=== PATIENT | female | born 1985 | race Caucasian/White ===

== ENCOUNTER 2019-07-19 17:45 | Inpatient (IN) | payer BC, SELFPAY ==
[2019-07-19] VITALS (9 sets, daily range): BP systolic 112–129; BP diastolic 60–71; PULSE 74–104; TEMP 37–37.2; O2SAT 97–99; BMI 29.7
[2019-07-19] MEDS: Lactated Ringers 1,000 ML 50 ML IV (18:30)
[2019-07-19 19:04] LABS: Absolute Lymphocyte Count 2.12 X10^3/uL (0.83-4.51); Absolute Neutrophil Count 5.6 X10^3/uL (2.0-7.7); Basophil# 0.01 X10^3/uL; Basophil% 0.1 % (0-1); Eosinophil# 0.12 X10^3/uL; Eosinophils% 1.4 % (0-5); Hematocrit 33.5 % (37-47); Hemoglobin 10.8 g/dL (12.0-15.0); Lymphocyte # 2.12 X10^3/ul (4.0); Lymphocyte % 24.7 % (19-41); Mean Corp Hgb Conc 32.2 g/dL (32-36); Mean Corpuscular Hgb 26.9 pg (27.0-32.0); Mean Corpuscular Volume 83.3 fL (81-99); Mean Platelet Vol. 11.1 fl (6.2-12.0); Monocyte% 8.2 % (0-10); NRBC Flagged by Analyzer 0 % (0-5); Neutrophil % 65.3 % (47-70); Platelet Count 269 K/mm3 (150-450); RBC Distribution Width CV 13.2 % (11.6-14.6); RBC Distribution Width SD 39.7 fl (35.1-43.9); Red Blood Count 4.02 M/mm3 (4.2-5.4); White Blood Count 8.6 K/mm3 (4.4-11.0)
[2019-07-19] MEDS: Lactated Ringers 500 ML 999 ML IV (23:01)
[2019-07-19] MEDS: fentaNYL-bupivacaine (epidural) 100 ML BAG EPIDURAL (23:58)
[2019-07-20] VITALS (35 sets, daily range): BP systolic 90–133; BP diastolic 49–87; PULSE 70–134; RESP 14–16; TEMP 36.2–37.7; O2SAT 98–100
[2019-07-20] MEDS: Lactated Ringers 500 ML 999 ML IV (00:02)
[2019-07-20] MEDS: Oxytocin 30 units/NS 500 ml 30 UNITS/500 ML IV.SOLN IV (01:00)
[2019-07-20] MEDS: Mag Hydrox/Al Hydrox/Simeth 30 ML UDC PO (04:06)
[2019-07-20] MEDS: fentaNYL-bupivacaine (epidural) 100 ML BAG EPIDURAL (04:08)
[2019-07-20] MEDS: Lactated Ringers 1,000 ML 200 ML IV (04:12)
[2019-07-20] MEDS: Oxytocin 30 units/NS 500 ml 30 UNITS/500 ML IV.SOLN 334 UNITS IV (06:54)
--- NOTE | 2019-07-20 07:15 | PCM.OPRPT ---
Vaginal Delivery Maternal Presentation: Medically Indicated Induction Method of Induction: Pitocin, Amniotomy Medical Reason for Induction: - - h/o 3rd degree laceration Amniotic Membrane Rupture Type: Artificial Amniotic Fluid Description: Clear Final JUANIS: 07/25/19 Final JUANIS Source: US <20 weeks Gestational age: 39 Weeks and 2 Days Date of Procedure: 07/20/19 Pre-Operative Diagnosis: labor Post-Operative Diagnosis: same Surgery/ Procedure Performed: Spontaneous Vaginal Delivery Type of Anesthesia: Epidural Description of Procedure: A vigorous male infant was delivered RIZWAN over a second-degree perineal laceration. A loose nuchal cord ?1 was easily reduced. The remainder the was delivered with maternal pushing and gentle traction only in less than 15 seconds. The Pitocin infusion was initiated for active management of the third stage. The cord was clamped and cut after 1 minute. The was attended to by the waiting nursing staff. The placenta was delivered spontaneously and intact. The cervix and vagina were intact. The second-degree perineal laceration was repaired with 3-0 Vicryl suture in a running standard fashion. Sponge and needle counts were correct. A vaginal sweep was completed by me. Presentation: RIZWAN Placental Delivery Description: Spontaneous Placenta Disposition: [facility] Cord Vessel Description: 3 Vessels Nuchal Cord Compression: Without compression Cord Entanglement: Around neck x 1, loose Drain: Bartholomew to straight drain Estimated Blood Loss: 300 Infant A gender: Male (1 minute): 9 (5 minute): 9 Episiotomy Description: None Laceration: 2nd degree Medications given after delivery: IV Pitocin Complications: None
--- NOTE | 2019-07-20 07:17 | HP.PCM_ITS ---
History Date of Admission: 07/19/19 Final JUANIS: 07/25/19 Final JUANIS Source: US <20 weeks Gestational age: 39 Weeks and 2 Days History of this : This is a 34 year-old, G 3, P 2, at presented to triage at 39-1/7 weeks gestation with a EDC of 07/25/2019 with complaints of some bloody show. She also had some irregular contractions. She had not changed her cervix significantly, but had a history of third-degree laceration. Risk benefits and alternatives to induction were offered to the patient she desired to proceed. was uncomplicated to date. Allergies amoxicillin [Amoxicillin] Allergy (Verified 07/13/16 14:23) Hives Home Medications: Home Medications Vits [Prenatabs FA ] 1 tablet PO DAILY 01/13/14 Calcium Carbonate [Tums] 500 mg PO TIDCM 07/19/19 Smoking Status: Never smoker Alcohol: None Number of Fetus(es): 1 History Past Pregnancies: Past Pregnancies Delivery Date Name GA/ Weeks Outcome Route Wt Sex Labor Length Anesthesia Delivery Location Provider FOB Expected Infant Delivery Method: Spontaneous Vaginal Review of Systems Constitutional: Denies: Chills, Fever Eyes: Denies: Blurred vision Cardiovascular: Denies: Chest Pain Respiratory: Denies: Cough, Shortness of Breath Gastrointestinal: Denies: Constipation, Diarrhea Genitourinary: Denies: Dysuria Neurological: Denies: Blurred vision, Double vision, Slurred speech Physical Exam Vitals: Vital Signs Temp Pulse BP Pulse Ox 99.9 F H 103 H 113/63 100 07/20/19 06:05 07/20/19 07:09 07/20/19 07:09 07/20/19 06:05 General: Alert, Cooperative, No apparent distress Cardiovascular: Regular rate Lungs: Normal air movement Abdomen: Soft, Non Tender, Non-Distended, Gravid Extremities:: Other - edema 1+ Neurological: Neuro grossly intact VENEER MATCHER: Normal external genitalia Estimated gestational size: Appropriate for gestational size Presentation: Cephalic Cervix Dilation (cm): 3 - arom w/ moderate clear fluid Station: -2 Effacement (%): 70 Assessment/Plan This is a 34 year-old, 3 para 2 at 39-1/7 weeks gestation admitted for induction of labor. Having some irregular contractions. H/o third-degree laceration. Estimated weight is less than 4500 g clinically and pelvis is clinically adequate to expect vaginal delivery. Pitocin and artificial rupture membranes for induction of labor. May have epidural as needed for pain control.
[2019-07-20] MEDS: 0.9% Saline Lock 10 ML Syringe IV (11:49)
[2019-07-20] MEDS: Naproxen 250 MG Tablet 500 MG PO (15:42)
[2019-07-20] MEDS: Acetaminophen 500 MG Tablet 1000 MG PO (23:05)
[2019-07-21 03:14] VITALS: BP 109/55; PULSE 64; RESP 14; TEMP 36.2
[2019-07-21] MEDS: Naproxen 250 MG Tablet 500 MG PO ×2 (03:20→13:34)
[2019-07-21 07:28] VITALS: BP 99/58; PULSE 71
[2019-07-21 08:00] VITALS: BP 99/58; PULSE 71; RESP 14; TEMP 36.2
--- NOTE | 2019-07-21 11:39 | PCM.PN.OB ---
Subjective: Patient is doing well. Ambulating and voiding without difficulty. Tolerating a regular diet without nausea or vomiting. She denies lightheadedness, dizziness, chest pain, shortness of breath, leg pain. Lochia normal. She is pumping. She has been working with . She desires to go home today. - Physical Exam Vitals/I&O's: Vital Signs Temp Pulse Resp BP Pulse Ox 97.1 F L 71 14 99/58 L 100 07/21/19 08:00 07/21/19 08:00 07/21/19 08:00 07/21/19 08:00 07/20/19 06:05 Oxygen Delivery Method Room Air Weight: 178 lb 9.191 oz Body Mass Index (BMI) 29.7 Intake and Output for Last 24 Hours 07/19/19 07/20/19 07/21/19 23:59 23:59 23:59 Intake Total 747.50 / 747.50 2806.67 / 2806.67 Output Total 1400 / 1400 Balance 747.50 / 747.50 1406.67 / 1406.67 General: Alert, No apparent distress HEENT: Atraumatic Lungs: Normal air movement Skin: No rashes Neurological: Neuro grossly intact Psych/Mental Status: Normal Affect, Appropriate Current Medications Acetaminophen (Tylenol) 1,000 mg PO Q8H PRN PRN PRN Reason: Pain Score 1-3/10 Last Admin: 07/20/19 23:05 Dose: 1,000 mg Documented by: Bisacodyl (Dulcolax) 10 mg RECTAL UD PRN PRN Reason: If no BM Dibucaine (Dibucaine) 1 applic TOPICAL TID PRN PRN; Protocol PRN Reason: Discomfort Hydrocortisone (Hytone) 1 applic TOPICAL TID PRN PRN; Protocol PRN Reason: Discomfort Methylergonovine Maleate (Methergine) 0.2 mg IM X1 PRN PRN Reason: Excess bleeding/uterine atony Naproxen (Naprosyn) 500 mg PO Q8H PRN PRN PRN Reason: Pain Score 1-3/10 Last Admin: 07/21/19 03:20 Dose: 500 mg Documented by: Ondansetron HCl (Zofran) 4 mg IV Q4H PRN PRN PRN Reason: Nausea Oxycodone HCl (Oxyir) 5 - 10 mg PO Q4H PRN PRN PRN Reason: Pain Score 4-10/10 Prochlorperazine Edisylate (Compazine Iv) 10 mg IV Q6H PRN PRN PRN Reason: NAUSEA/VOMITING Senna/Docusate Sodium (Senokot-S, Mya-Colace) 1 - 2 tablet PO DAILY PRN PRN PRN Reason: Constipation Simethicone (Mylicon) 80 mg PO PCHS PRN PRN Reason: Indigestion/Stomach pain Sodium Chloride () 5 - 15 ml IV UD PRN PRN Reason: SALINE FLUSH Last Admin: 07/20/19 11:49 Dose: 10 ml Documented by: Medical Necessity - Tobacco Use Smoking Status: Never smoker Assessment/Plan Patient is day 1 from a vaginal delivery. She is doing well and meeting all milestones to go home. She desires to go home. Discharge instructions reviewed.
--- NOTE | 2019-07-21 11:40 | DCINST_ITS ---
Discharge Diet: No Restrictions Discharge Activity: May Shower, May Take a Tub Bath May resume sexual activity in: 6 weeks Ice area for (Minutes): 15 Weight Bearing Status: Weight bearing as tolerated Lifting Restrictions: Nothing greater than 20 lbs Call your doctor if your incision/area has: Increased Pain/ Swelling, Foul Smelling Discharge Call your doctor if you observe: Fever of 101 or Higher, Inability to urinate, Inability to have a bowel movement, Using more than one pad per hour, Shortness of breath, Chest pain, Increased palpitations (irregular heartbeat), Calf discomfort, Uncontrolled pain Cleanse incision/area with: Soap & Water Additional Instructions: If you experience any of the following, contact your healthcare provider. * Bleeding that soaks a pad every hour for 2 hours * Fever 100.4 or higher * Unrelieved incision or abdominal pain * Swelling, redness, discharge or bleeding from your incision or episiotomy site * Your incision begins to separate * Problems urinating (including inability to urinate or burning while urinating). * Visual changes * Severe headache * Flu-like symptoms * Pain or redness in one of both of your breasts * Pain, warmth, tenderness or swelling in your legs, especially the calf area * Frequent nausea and vomiting * Symptoms of depression or anxiety If you experience any of the following, call 911 or go to the nearest Emergency Room. * Chest pain * Problems breathing * Seizure activity * Partial or complete paralysis of a body part, slurred speech, weakness or drooping of the face, or a sudden inability to walk or hold your balance Allergies/Adverse Reactions: Allergies amoxicillin [Amoxicillin] Allergy (Verified 07/13/16 14:23) Hives Medications to take at Discharge Vits [Prenatabs FA ] 1 tablet PO DAILY 01/13/14 Calcium Carbonate [Tums] 500 mg PO TIDCM 07/19/19 When: 6 week visit - okay for virtual visit if you feel well. Can also have virtual visit in 1-2 weeks if you desires Primary Care Physician: Yassine Mims MD [Primary Care Provider] - Test Results: Test results from this visit will be discussed in further detail at your follow- up appointment, if applicable.
[2019-07-21 13:27] VITALS: BP 104/59; PULSE 84
[2019-07-21] MEDS: Senna/Docusate Sodium 1 Tablet PO (13:34)
[2019-07-21 13:43] VITALS: BP 104/59; PULSE 84; RESP 16; TEMP 36.2
== END 2019-07-21 16:20 | disposition home or self-care (01) | DRG 807 ==
PROVIDERS: Admitting Provider Obstetrics & Gynecology; PCP Family Medicine; Visit Provider Obstetrics & Gynecology
DX: O69.1XX0 Labor and delivery complicated by cord around neck, with compression, not applicable or unspecified (principal); O70.1 Second degree perineal laceration during delivery; Z3A.39 39 weeks gestation of pregnancy; Z37.0 Single live birth
CPT/HCPCS: 59025; 59050; 85025; 86850; 86900; 86901; 99218; J7120; A4216; G0378

== ENCOUNTER → 2022-07-02 | Outpatient (CLI) | payer BC, SELFPAY ==
[2022-07-07 08:31] LABS: HPV APTIMA, High Risk Negative (Negative)
== END | disposition home or self-care (01) ==
LOC: LAB 11:53
PROVIDERS: PCP Internal Medicine; Referring Provider Obstetrics & Gynecology; Visit Provider Obstetrics & Gynecology
DX: Z34.90 Encounter for supervision of normal pregnancy, unspecified, unspecified trimester (principal)
CPT/HCPCS: 87624; 88175; G0145

== ENCOUNTER → 2022-08-22 | Outpatient (CLI) | payer BC, SELFPAY ==
--- NOTE | 2022-08-22 07:55 | US_ITS ---
STUDY: SECOND AND THIRD TRIMESTER OBSTETRICAL ULTRASOUND REASON FOR EXAM: Female, 37 years old anatomy LMP: April 09, 2022. TECHNIQUE: Transabdominal and Transvaginal TECHNICAL QUALITY: Adequate. PRIOR ULTRASOUND: None. FINDINGS: There is a single intrauterine fetus. The fetus is in an transverse lie with the head on the maternal left side. There is demonstrated cardiac activity with a heart rate of 141 bpm. There is a normal amniotic fluid volume. The largest amniotic fluid pocket measures 6.1 cm x 4.6 cm. The amniotic fluid index (CARLOS A) is within normal limits. The placenta is anterior in location and is not low lying. There are Grade 0 placental changes. The cervix measures 4.2 cm in length. The bilateral adnexal regions are normal. BIOMETRY: BPD: 4.32 cm: 19 weeks, 0 days HC: 16.46 cm: 19 weeks, 1 days AC: 14.8 cm: 20 weeks, 1 days FL: 2.92 cm: 19 weeks, 0 days CI: 75% FL/BPD: 68% FL/HC: FL/AC: 20% HC/AC: 1.11 age by current US: 19 weeks, 2 days. JUANIS by current US: January 14, 2023. Estimated weight: 299 grams, +/- 45 grams, 59 %. Age by LMP: 19 weeks, 2 days. JUANIS by LMP: January 14, 2023. ANATOMY: Gender: Indeterminant Cranium: Normal lateral ventricles. Normal choroid plexus. Normal cerebellum. Normal cisterna magna. Normal face, nose and lips. Chest: Normal 4-chamber heart. Abdomen/Pelvis: Normal diaphragm. Normal stomach. Normal abdominal wall. Normal cord insertion. Normal 3 vessel cord. Normal kidneys. Normal bladder. Spine: Normal cervical spine. Normal thoracic spine. Normal lumbar spine. Normal sacrum. Extremities: Normal bilateral upper extremities. Normal bilateral lower extremities. IMPRESSION: Single live intrauterine gestation with gestational age of 19 weeks 2 days. Electronically Signed: Brandan Blackmon MD at 15:25 EDT , STUDY: FIRST TRIMESTER OBSTETRICAL ULTRASOUND REASON FOR EXAM: Female, 37 years old . Cervical length. LMP: April 09, 2022 TECHNIQUE: Transvaginal TECHNICAL QUALITY: Adequate. PRIOR ULTRASOUND: None. FINDINGS: Cervical length measures 4.2 cm. US/OB Anatomy Scan IMPRESSION: Cervical length measures 4.2 cm. Electronically Signed: Brandan Blackmon MD at 15:26 EDT ,
== END | disposition home or self-care (01) ==
PROVIDERS: PCP Internal Medicine; Referring Provider Obstetrics & Gynecology; Visit Provider Obstetrics & Gynecology
DX: O09.90 Supervision of high risk pregnancy, unspecified, unspecified trimester (principal)
CPT/HCPCS: 76805; 76817

== ENCOUNTER → 2022-10-22 | Outpatient (CLI) | payer BC, SELFPAY ==
[2022-10-22 08:44] LABS: Absolute Lymphocyte Count 2.04 X10^3/uL (0.83-4.51); Absolute Neutrophil Count 5.4 X10^3/uL (2.0-7.7); Basophil# 0.04 X10^3/uL; Basophil% 0.5 % (0-1); Eosinophil# 0.17 X10^3/uL; Eosinophils% 2.1 % (0-5); Hematocrit 35.8 % (37-47); Hemoglobin 11.4 g/dL (12.0-15.0); Lymphocyte # 2.04 X10^3/ul (0.83-4.51); Lymphocyte % 24.7 % (19-41); Mean Corp Hgb Conc 31.8 g/dL (32-36); Mean Corpuscular Hgb 28.7 pg (27.0-32.0); Mean Corpuscular Volume 90.2 fL (81-99); Mean Platelet Vol. 10.4 fl (6.2-12.0); Monocyte# 0.56 X10^3/uL; Monocyte% 6.8 % (0-10); NRBC Flagged by Analyzer 0 % (0-5); Neutrophil % 65.2 % (47-70); Platelet Count 320 K/mm3 (150-450); RBC Distribution Width CV 13.5 % (11.6-14.6); RBC Distribution Width SD 45.2 fl (35.1-43.9); Red Blood Count 3.97 M/mm3 (4.2-5.4); White Blood Count 8.3 K/mm3 (4.4-11.0)
[2022-10-22 08:56] LABS: Glucose Challenge Gest 1H 50g 95 mg/dL (70-140)
[2022-10-22 09:37] LABS: HIV - WCH Non-Reactive (Nonreactive); Hepatitis C Antibody Non-Reactive (Nonreactive)
== END | disposition home or self-care (01) ==
PROVIDERS: Obstetrics & Gynecology; PCP Internal Medicine; Referring Provider Nurse Practitioner Women's Health; Visit Provider Nurse Practitioner Women's Health
DX: O09.90 Supervision of high risk pregnancy, unspecified, unspecified trimester (principal); Z3A.00 Weeks of gestation of pregnancy not specified
CPT/HCPCS: 36415; 82950; 85025; 86703; 86803; 87086

== ENCOUNTER → 2022-12-17 | Outpatient (CLI) | payer BC, SELFPAY | END | disposition home or self-care (01) | LOC: LABSPEC 16:49 | PROVIDERS: PCP Internal Medicine; Referring Provider Obstetrics & Gynecology; Visit Provider Obstetrics & Gynecology | DX: O09.90 Supervision of high risk pregnancy, unspecified, unspecified trimester (principal); Z3A.00 Weeks of gestation of pregnancy not specified | CPT/HCPCS: 87077; 87081; 87186 ==

== ENCOUNTER 2023-01-10 05:28 | Inpatient (IN) | payer BC, SELFPAY ==
[2023-01-10] VITALS (49 sets, daily range): BP systolic 92–122; BP diastolic 40–80; PULSE 72–112; RESP 16–18; TEMP 36.1–37.7; O2SAT 98–99; BMI 30.2
[2023-01-10] MEDS: LACTATED RINGERS 500 ML 999 ML IV (05:45)
[2023-01-10] MEDS: Lactated Ringers 1,000 ML 200 ML IV ×2 (05:45→08:35)
[2023-01-10 05:52] LABS: Absolute Lymphocyte Count 2.49 X10^3/uL (0.83-4.51); Absolute Neutrophil Count 6.9 X10^3/uL (2.0-7.7); Basophil# 0.03 X10^3/uL; Basophil% 0.3 % (0-1); Eosinophil# 0.14 X10^3/uL; Eosinophils% 1.4 % (0-5); Hematocrit 33.4 % (37-47); Hemoglobin 10.3 g/dL (12.0-15.0); Lymphocyte # 2.49 X10^3/ul (0.83-4.51); Lymphocyte % 24.1 % (19-41); Mean Corp Hgb Conc 30.8 g/dL (32-36); Mean Corpuscular Hgb 25.1 pg (27.0-32.0); Mean Corpuscular Volume 81.3 fL (81-99); Monocyte# 0.73 X10^3/uL; Monocyte% 7.1 % (0-10); NRBC Flagged by Analyzer 0 % (0-5); Neutrophil % 66.6 % (47-70); Platelet Count 287 K/mm3 (150-450); RBC Distribution Width CV 14.3 % (11.6-14.6); RBC Distribution Width SD 41.6 fl (35.1-43.9); Red Blood Count 4.11 M/mm3 (4.2-5.4); White Blood Count 10.3 K/mm3 (4.4-11.0)
--- NOTE | 2023-01-10 06:01 | HP.PCM.OB_ITS ---
HPI - General General Date of Admission: 01/10/23 HPI Narrative YASMANI KO, is a 37 y/o @ 39 weeks 3 days who presents to L&D in active labor. She is currently 5-6 cm with bulging membranes and wants an epidural. She denies vaginal bleeding or decreased movement. Maternal Data Information JUANIS Calculator Estimated Delivery Date Method Current WG Current Estimate 01/14/23 Ultrasound #1 39w 3d Other Estimates 01/26/23 LMP (Certain) 37w 5d PFSH PFSH Medical History ASCUS of cervix with negative high risk HPV Fibromyalgia Home Medications vits,calcium no.78-iron fumarate-folic acid 29 mg-1 mg tablet (Prenatabs FA) 1 tab PO DAILY vitamin 01/13/14 [History Last Taken 07/18/19 22:00 1 tab] Allergy/AdvReac Type Severity Reaction Status Date / Time adhesive Allergy Mild Rash Verified 01/10/23 05:22 amoxicillin [Amoxicillin] Allergy Hives Verified 01/10/23 05:22 Family History Aunt Breast cancer, Onset Age: 40 Paternal Grandmother Ovarian cancer, Onset Age: 85 Paternal Surgical History H/O oral surgery [place] teeth extracted Social History adopted: No household members: spouse and children number of children: 3 current occupational status: unemployed pets and animals: Yes pets and animals: dog(s) history of recent travel: No sexually active: Yes Smoking Status: Never smoker alcohol intake: former details: social when not substance use type: does not use well-balanced diet: daily or most days caffeine: Yes Type: coffee Number of servings: 1 and tea Number of servings: 1 eating out: 1-3 times/week during the past year weight has: remained stable what type of physical activity do you participate in: none cheikh/restorationist: Temple seatbelt use: always do you feel safe at home: Yes 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 Date Name GA/Weeks Outcome Route Bth Weight Infant Gen Labor Lgth Anesthesia Del Locatn Provider FOB 01/14/14 [place] 39 live - full term 7#1oz Female 18 h r epidural [facility] 07/13/[address] [place] [address] 39 live - full term 8#1oz Male epidur al [facility] Sukh Avinger 07/20/19 [place] 39 live - full term 8#12oz Male epid ural [facility] Visit Details Expected Delivery Route/Plan Labor Preferences- CB/BF classes: no labor support person: John labor intervention preferences: [] pain management options preferred: epidural cut cord/dad catch: yes :no. failed X 3 previous PP control planned: discussed. Nuvaring until vasectomy discussed possible routes of delivery and associated risks: [] special requests: [] Plans Covid status: discussed Flu vaccine: discussed Tdap vaccine: Rhogam: NA LARC form signed: yes Problem list reviewed and updated with the most current plan of care details and appropriate orders placed. Relevant counseling for the gestational age provided. Continue routine care and follow up unless otherwise noted in visit notes/problem list details OB Flowsheet Initial Weight: Not Recorded Date -?-?-?-?-?-?-?-?-?-?-?-?- EGA Weight BP Urine Prot -?-?-?-?-?-?-?-?-?-?-?-?- Glucose FHR FuHt Pres Dilation -?-?-?-?-?-?-?-?-?-?-?-?- Effaced St Visit Note 07/02/22 -?-?-?-?-?-?-?-?-?-?-?-?- 12w 0d 158 lb 4 oz 113/74 -?-?-?-?-?-?-?-?-?-?-?-?- 160 -?-?-?-?-?-?-?-?-?-?-?-?- SM- CRL cons wit h LMP SM- CRL NOT cons with LMP 08/22/22 -?-?-?-?-?-?-?-?-?-?-?-?- 19w 2d 163 lb 6 oz 104/70 Nega tive -?-?-?-?-?-?-?-?-?-?-?-?- Negative 155 -?-?-?-?-?-?-?-?-?-?-?-?- KW- + flutters. no vb/cramping. US today. no concerns. travel precautions given-going to [place] in 4 weeks. release form signed again to get lab records from 09/24/22 -?-?-?-?-?-?-?-?-?-?-?-?- 24w 0d 167 lb 2 oz 112/64 Nega tive -?-?-?-?-?-?-?-?-?-?-?-?- Negative 145 -?-?-?-?-?-?-?-?-?-?-?-?- SM- no vb lof go od fm no regular ctx 10/22/22 -?-?-?-?-?-?-?-?-?-?-?-?- 28w 0d 168 lb 116/68 Negative -?-?-?-?-?-?-?-?-?-?-?-?- Negative 153 28 -?-?-?-?-?-?-?-?-?-?-?-?- -No VB, LOF. G ood Fm. 28 wk labs,tdap, [facility] 11/19/22 -?-?-?-?-?-?-?-?-?-?-?-?- 32w 0d 177 lb 2 oz 122/71 Nega tive -?-?-?-?-?-?-?-?-?-?-?-?- Negative 140 32 -?-?-?-?-?-?-?-?-?-?-?-?- LC- no vb/ctx/lo f. good fm. is concerned with , considering formula only. 12/04/22 -?-?-?-?-?-?-?-?-?-?-?-?- 34w 1d 178 lb 2 oz 111/64 Trac e -?-?-?-?-?-?-?-?-?-?-?-?- Negative 140 35 Breech -?-?-?-?-?-?-?-?-?-?-?--?- KW-no vb/lof/ctx . good fm. Would like external version scheduled if still breech at 36 weeks 12/17/22 -?-?-?-?-?-?-?-?-?-?-?-?- 36w 0d 181 lb 6 oz 110/66 Nega tive -?-?-?-?-?-?-?-?-?-?-?-?- Negative 141 36 Cephalic -?-?-?-?-?-?-?-?-?-?-?-?- JV- no lof, vagi nal bleeding, or dec fm. gbs collected. vtx on ultrasound today. 12/24/22 -?-?-?-?-?-?-?-?-?-?-?-?- 37w 0d 183 lb 111/74 Negative -?-?-?-?-?-?-?-?-?-?-?-?- Negative 140 37 Cephalic -?-?-?-?-?-?-?-?-?-?-?-?- SM- no vb lof go od fm no reuglar ctx 01/01/23 -?-?-?-?-?-?-?-?-?-?-?-?- 38w 1d 183 lb 2 oz 116/70 Nega tive -?-?-?-?-?-?-?-?-?-?-?-?- Negative 140 38 Cephalic 1 -?-?-?-?-?-?-?-?-?-?-?-?- Sm- no vb lof go od fm n oregular ctx 01/08/23 -?-?-?-?-?-?-?-?-?-?-?-?- 39w 1d 183 lb 2 oz 124/76 Nega tive -?-?-?-?-?-?-?-?-?-?-?-?- Negative 145 39 Cephalic 3 -?-?-?-?-?-?-?-?-?-?-?-?- 80 -2 JV- no lof , vaginal bleeding, or dec fm. doc only for delivery. membranes stripped. ROS Constitutional Constitutional: Denies change in weight, fatigue, fever(s), headache(s), poor appetite or weakness Eyes Eyes: Denies blurry vision, change in vision, seeing flashes or spots in vision ENT HEENT: Denies dizziness, headache(s), loss taste/smell or sore throat Cardiovascular Cardiovascular: Denies chest pain, dizziness, dyspnea, irregular heart rhythm, leg edema, palpitations, rapid heart rate or vomiting Respiratory/Chest Respiratory/Chest: Denies chest tightness, cough, dyspnea or breast pain Gastrointestinal Gastrointestinal: Denies abdominal pain, anorexia, constipation, cramping, diar ayo, hemorrhoids, vomiting or weight changes Genitourinary Genitourinary: Denies dysuria, flank pain, genital lesions, genital pain, urinary frequency or urinary urgency Musculoskeletal Musculoskeletal: Denies back pain, difficulty walking, joint pain, limited range of motion, muscle cramps or numbness Integumentary Integumentary: Denies lesions or unusual bruising Neurologic Neurologic: Denies abnormal movements, abnormal speech, dizziness, numbness, seizure-like activity or syncope Psychiatric Psychiatric: Denies anxiety, behavioral changes, change in appetite, change in libido, cognitive impairment, confusion, depression, difficulty concentrating, hallucinations or suicidal thoughts Endocrine Endocrinology: Denies excessive sweating, polydipsia or polyuria Hematologic/Lymphatic Hematologic/Lymphatic: Denies easy bleeding, easy bruising or lymphadenopathy Allergic/Immunologic Allergic/Immunologic: Denies itchy eyes, lip swelling, seasonal rhinorrhea, rhinitis, throat swelling, tongue swelling, eczemia, wheezing or asthma Vital Signs Vital Signs Vital Signs: 01/10/23 05:19 01/10/23 05:19 01/10/23 05:18 Temperature Temperature Source Temporal Pulse Rate 100 Blood Pressure 102/67 BP Systolic 102 BP Diastolic 67 01/10/23 05:18 Temperature 98.2 F Temperature Source Pulse Rate Blood Pressure BP Systolic BP Diastolic Weight Weight: 182 lb Body Mass Index (BMI) 30.2 Physical Exam Const alert, oriented x3, no apparent distress and healthy appearing General Appearance: cooperative; Negative for anxious HEENT normocephalic Face and Sinus: normal facial exam Eyes EOMs intact bilaterally and no scleral icterus General Eye: normal appearance of both eyes Neck full ROM and supple Lymph Lymphatic: no lymphadenopathy noted Chest Chest: abnormal inspection of the chest Resp normal respiratory effort Effort and Inspection: able to speak in complete sentences Cardio regular rate GI soft to palpation and non-tender Inspection: gravid Palpation: soft; Negative for tender Back/Spine no CVA tenderness Extremity normal to inspection, full ROM and no clubbing, cyanosis or edema General Extremity: Negative for calf tenderness or edema Skin Lesions: no lesions Rashes: no rashes Psych mental status grossly normal Labs Labs Labs: Blood Type O POSITIVE Antibody Screen NEGATIVE Hct 33.4 % (37-47) L Hgb 10.3 g/dL (12.0-15.0) L Obstetrics Ultrasound Syphilis Total Ab Pending Hepatitis C Antibody Non-Reactive (Nonreactive) HIV 1&2 Antibody Non-Reactive (Nonreactive) Glucose 1 Hr 50 gm 95 mg/dL (70-140) Rhogam given: No Assessment & Plan (1) Positive GBS test: COMMENT: ATB in labor* Pt allergy to amoxicillin, plan for clinda in labor (2) AMA (advanced maternal age) multigravida 35+: QUALIFIERS: Trimester: third trimester Qualified Code(s): O09.523 - Supervision of elderly multigravida, third trimester COMMENT: genetic counseling provided and declined (3) Supervision of high-risk : QUALIFIERS: Trimester: third trimester Qualified Code(s): O09.93 - Supervision of high risk , unspecified, third trimester COMMENT: [id number] JUANIS 01/26/23 surprise PC Cr Matthew Briggs John (4) : QUALIFIERS: Weeks of gestation: 39 weeks Qualified Code(s): Z3A.39 - 39 weeks gestation of COMMENT: DOC ONLY DELIVERY. declined NIPT & Carrier testing. labs done at . nl anatomy, nl GCT. PLAN: Plan Patient presents IAL, plan expectant management for , pitocin/AROM PRN if needed. Pain management: plans epidural. GBS positive plan IV clindamycin for pcn allergy Management of any complications: none I have reviewed the [facility] and made any clinically relevant updates.
[2023-01-10] MEDS: Clindamycin 900 MG/50 ML BAG 75 MG IV (06:16)
[2023-01-10] MEDS: fentaNYL-bupivacaine (epidural) 100 ML BAG EPIDURAL (08:36)
[2023-01-10] MEDS: Oxytocin 15 Units/NS 250ml 15 UNITS/250 ML IV.SOLN 2 UNITS IV (08:50)
[2023-01-10 09:28] LABS: Syphilis Antibodies Non-reactive
[2023-01-10] MEDS: Oxytocin 15 Units/NS 250ml 15 UNITS/250 ML IV.SOLN 83 UNITS IV (11:45)
[2023-01-10] MEDS: Naproxen 500 MG Tablet PO ×2 (12:47→20:14)
--- NOTE | 2023-01-10 13:18 | EX.PCM.OBRPT ---
Assessment & Plan (1) Positive GBS test: COMMENT: ATB in labor* Pt allergy to amoxicillin, plan for clinda in labor (2) AMA (advanced maternal age) multigravida 35+: QUALIFIERS: Trimester: third trimester Qualified Code(s): O09.523 - Supervision of elderly multigravida, third trimester COMMENT: genetic counseling provided and declined (3) Supervision of high-risk : QUALIFIERS: Trimester: third trimester Qualified Code(s): O09.93 - Supervision of high risk , unspecified, third trimester COMMENT: [id number] JUANIS 01/26/23 surprise PC Cr Matthew Briggs John (4) : QUALIFIERS: Weeks of gestation: 39 weeks Qualified Code(s): Z3A.39 - 39 weeks gestation of COMMENT: DOC ONLY DELIVERY. declined NIPT & Carrier testing. labs done at . nl anatomy, nl GCT. (5) Vaginal delivery: COMMENT: SM boy 39 IAL Maternal Data Information JUANIS Calculator Estimated Delivery Date Method Current WG Current Estimate 01/14/23 Ultrasound #1 39w 4d Other Estimates 01/26/23 LMP (Certain) 37w 6d Vaginal Delivery Operative Information Date of Procedure: 01/10/23 Pre-Operative Diagnosis: see a/p diagnoses Post-Operative Diagnosis: same Surgery / Procedure Performed: Spontaneous Vaginal Delivery Type of Anesthesia: Epidural Special Medications: none Estimated Blood Loss: 200 Fluids Replaced: crystalloid Findings Description of Procedure: Patient began pushing and delivered the head in the RIZWAN presentation. The head was delivered atraumatically . The anterior and posterior shoulders delivered without complication followed by the rest of the infant and the was placed on the maternal abdomen. Delayed cord clamping was employed for approximately 60 seconds. Cord was clamped and cut and gentle traction was applied to the cord and the placenta delivered spontaneously immediately following it was noted to be intact with three-vessel cord. The perineum and vagina were inspected and noted to have a second degree perineal laceration which was repaired in the usual fashion with 3-0 vicryl rapide. . EBL was 200 cc. Patient and infant tolerated delivery well. Amniotic Fluid Description: Clear Placental Delivery Description: Spontaneous Placenta Disposition: [facility] Cord Vessel Description: 3 Vessels Cord Entanglement: None Delayed Cord Clamping: Yes Post Vaginal Delivery Medications Given After Delivery: IV Pitocin Episiotomy Description: None Complication Complications: None Procedures Urinary/Genital [id number]: [id number] Vaginal Delivery [facility]
[2023-01-10] MEDS: Cefazolin 2 GM in 0.9% Normal Saline (100mL Bag) 100 ML IV (13:52)
[2023-01-10] MEDS: Acetaminophen 500 MG Tablet 1000 MG PO (23:09)
[2023-01-10] MEDS: Benzocaine/Lanolin/Aloe Vera 1 SPRAY EACH TOPICAL (23:10)
[2023-01-11 04:30] VITALS: BP 93/52; PULSE 83; RESP 18; TEMP 36.4
--- NOTE | 2023-01-11 06:12 | DCINST_ITS ---
Discharge Instructions Diet Discharge Diet: No restrictions Activity Discharge Activity: Return to Normal Activity, May Not Drive (while taking narcotic pain medications.) and May Shower May resume sexual activity in: 4-6 weeks Dressing / Incision Call your doctor if your incision/area has: Continuous Slow Oozing, Sudden Increased Bleeding, Increased Pain/ Swelling, Increased Redness and Foul Smelling Discharge Follow Up Care Please Follow Up With: Hali Mcbride MD When: Call [phone] to make an appointment with your doctor in 6 weeks. If you had elevated blood pressure or 4th degree laceration, you will need to be seen in 2 weeks. Test Results: Test results from this visit will be discussed in further detail at your follow- up appointment, if applicable. Discharge Plan Admission Admit Date/Time: 01/10/23 05:28 Attending Provider: Hali Mcbride Primary Care Provider: Jen Perez Discharge Orders/Prescriptions Prescriptions: No Action vit,[id number] [Prenatabs FA] 1 TABLET tablet 1 tab PO DAILY Referrals / Follow Up: Jen Perez DO [Primary Care Provider] - Disposition Disposition (needs filled in before D/C Order can be placed): Home, Self Care
[2023-01-11 07:41] VITALS: BP 119/64; PULSE 70; RESP 16; TEMP 36.1; O2SAT 96
[2023-01-11] MEDS: Naproxen 500 MG Tablet PO ×2 (07:49→15:15)
[2023-01-11] MEDS: Acetaminophen 500 MG Tablet 1000 MG PO ×3 (07:49→20:56)
--- NOTE | 2023-01-11 11:00 | PCM.PN.OB ---
Subjective Subjective Patient doing well without complaints. Tolerating PO. Ambulating and voiding without difficulty. Feeding well. Denies chest pain, shortness of breath, calf pain/swelling, fevers, chills, lightheadedness. Objective Data Objective Data Vital Signs: Vital Signs Temp Pulse Resp BP Pulse Ox O2 Del Method 97.0 F L 70 16 119/64 96 Room Air 01/11/23 07:41 01/11/23 07:41 01/11/23 07:41 01/11/23 07:41 01/11/23 07:41 01/11/23 07:41 Oxygen Delivery Method Room Air Weight: 182 lb Body Mass Index (BMI) 30.2 Intake & Output: Intake and Output for Last 24 Hours 01/09/23 01/10/23 01/11/23 23:59 23:59 23:59 Intake Total 2240.00 / 2240.00 Output Total 1700 / 1700 Balance 540.00 / 540.00 Lab / Micro Data 01/10/23 05:35 ROS Constitutional Constitutional: Denies chills, fatigue, fever(s), poor appetite or weakness Eyes Eyes: Denies blurry vision, change in vision, seeing flashes or spots in vision ENT HEENT: Denies dizziness, headache(s), loss taste/smell or sore throat Cardiovascular Cardiovascular: Denies chest pain, dizziness, dyspnea, irregular heart rhythm, palpitations or rapid heart rate Respiratory/Chest Respiratory/Chest: Denies chest tightness, cough, dyspnea or breast pain Gastrointestinal Gastrointestinal: Denies abdominal pain, constipation or vomiting Genitourinary Genitourinary: Denies dysuria or flank pain Musculoskeletal Musculoskeletal: Denies difficulty walking, joint pain, limited range of motion or numbness Neurologic Neurologic: Denies abnormal movements, abnormal speech, dizziness, numbness, seizure-like activity or syncope Psychiatric Psychiatric: Denies anxiety, behavioral changes, change in appetite, confusion, depression or suicidal thoughts Physical Exam Const alert, oriented x3 and no apparent distress General Appearance: cooperative and comfortable Resp normal respiratory effort Cardio regular rate GI normal to inspection, nondistended, normoactive bowel sounds GI Narrative: uterus is firm below umbilicus Palpation: soft Back/Spine no CVA tenderness and thoraco-lumbar ROM normal Extremity normal to inspection, no clubbing, cyanosis or edema, no calf tenderness and no pedal edema Psych mental status grossly normal, thought process normal, cooperative, affect normal, speech normal, activity/motor behavior normal, denies homicidal ideation and denies suicidal ideation Assessment & Plan (1) Vaginal delivery: COMMENT: PATRICK boy 41 IAL PLAN: s/p PPD # 1 1. routine post delivery care 2. breast feeding- support given 3. rh positive 4. rubella immune 5. wants to go home today
[2023-01-11] MEDS: Senna/Docusate Sodium 1 Tablet PO (13:59)
[2023-01-11 14:01] VITALS: BP 116/68; PULSE 74; RESP 16; TEMP 36.5; O2SAT 99
[2023-01-11 19:55] VITALS: BP 101/69; PULSE 89; RESP 16; TEMP 36.6; O2SAT 98
== END 2023-01-11 21:15 | disposition home or self-care (01) | DRG 807 ==
LOC: WPOUT 05:29 → WP 05:29
PROVIDERS: Admitting Provider Obstetrics & Gynecology; PCP Internal Medicine; Referring Provider Obstetrics & Gynecology; Visit Provider Obstetrics & Gynecology
DX: O99.824 Streptococcus B carrier state complicating childbirth (principal); Z37.0 Single live birth; O73.1 Retained portions of placenta and membranes, without hemorrhage; O70.1 Second degree perineal laceration during delivery; Z3A.39 39 weeks gestation of pregnancy; Z88.0 Allergy status to penicillin
CPT/HCPCS: 59025; 59050; 85025; 86780; 86850; 86900; 86901; 99221; J7120; G0378

== ENCOUNTER → 2024-03-10 | Outpatient (CLI) | payer BC, SELFPAY | END | disposition home or self-care (01) | LOC: LABSPEC 16:41 | PROVIDERS: PCP Internal Medicine; Referring Provider Obstetrics & Gynecology; Visit Provider Obstetrics & Gynecology | DX: N89.8 Other specified noninflammatory disorders of vagina (principal) | CPT/HCPCS: 87070; 87205 ==